=== PATIENT | male | born 1955 | race Caucasian/White ===

== ENCOUNTER 2024-05-21 16:38 | Emergency (ER) | payer OTHER ==
[2024-05-21 16:55] VITALS: BP 149/77; PULSE 65; RESP 18; TEMP 98.3; BMI 27.1
[2024-05-21] MEDS ORDERED: ACETAMINOPHEN 325 MG TABLET (FP) ONE (18:28)
[2024-05-21] MEDS ORDERED: IBUPROFEN 600 MG TABLET (FP) PO ONE (18:28)
[2024-05-21] MEDS: IBUPROFEN 600 MG TABLET (FP) PO ONE (18:41)
[2024-05-21] MEDS: ACETAMINOPHEN 325 MG TABLET (FP) PO ONE (18:41)
== END 2024-05-21 19:35 | disposition home or self-care (01) ==
LOC: JERFT 16:38
DX: S39.012A Strain of muscle, fascia and tendon of lower back, initial encounter (principal); W07.XXXA Fall from chair, initial encounter
CPT/HCPCS: 72100-TC-FY; 99283-25